=== PATIENT | male | born 1955 | race Caucasian/White ===

== ENCOUNTER 2024-01-02 02:52 | Inpatient (IN) | payer OTHER ==
[~2024-01-02] VITALS: Ht 180.3 cm; Wt 119.0 kg
[2024-01-02 03:56] LABS: BASOPHILS ABSOLUTE AUTO 0.08 K/mm3 (0.00-0.23); BASOPHILS PERCENT AUTO 1 % (0-2); EOSINOPHILS ABSOLUTE AUTO 0.01 K/mm3 (0.00-0.68); EOSINOPHILS PERCENT AUTO 0 % (0-6); Hematocrit 38.9 % (37.0-53.0); Hemoglobin 12.2 g/dL (13.5-17.5); IMMATURE GRAN PERCENT AUTO 1 % (0-1); LYMPHOCYTES ABSOLUTE AUTO 0.87 K/mm3 (0.84-5.20); LYMPHOCYTES PERCENT AUTO 7 % (21-46); MONOCYTES ABSOLUTE AUTO 1.52 K/mm3 (0.16-1.47); MONOCYTES PERCENT AUTO 12 % (4-13); Mean Corpuscular HGB 23.8 pg (26.0-34.0); Mean Corpuscular HGB Conc 31.4 g/dL (31.5-36.5); Mean Corpuscular Volume 76 fL (80-100); Mean Platelet Volume 9.7 fL (9.1-12.4); NEUTROPHILS ABSOLUTE AUTO 10.11 K/mm3 (1.96-9.15); NEUTROPHILS PERCENT AUTO 80 % (41-73); Platelet Count 297 K/mm3 (150-400); RDW Coefficient Variation 16.4 % (11.7-14.2); RDW Standard Deviation 44.1 fL (35.1-46.3); Red Blood Cell Count 5.13 M/mm3 (4.30-5.90); White Blood Cell Count 12.69 K/mm3 (4.00-11.30)
[2024-01-02 04:06] LABS: Albumin/Globulin Ratio 0.7 (0.8-1.8); Bilirubin, Total 1.7 mg/dL (0.1-1.0); Bun/Creatinine Ratio 20.3 (12.0-20.0); Calcium, Blood 8.9 mg/dL (8.5-10.1); Creatinine, Blood 0.84 mg/dL (0.60-1.20); Globulin, Blood 4.1 g/dL (2.2-4.0); Potassium, Blood 3.4 mmol/L (3.5-5.5); Total Protein, Blood 7.1 g/dL (6.4-8.2)
[2024-01-02] MEDS ORDERED: Ipratropium/Albuterol SulF 2.5-0.5MG/3 ML Amp INH ONE (04:55)
[2024-01-02] MEDS ORDERED: NS 1,000 ML IV SCH (05:15)
[2024-01-02] MEDS ORDERED: Ondansetron HCl 2 MG / ML 2ML Vial IV PRN (05:25)
[2024-01-02 05:26] LABS: Influenza B, PCR NEGATIVE (NEGATIVE); Resp Syncytial Virus, PCR NEGATIVE (NEGATIVE)
[2024-01-02] MEDS ORDERED: Ipratropium/Albuterol SulF 2.5-0.5MG/3 ML Amp INH PRN (05:30)
[2024-01-02] MEDS ORDERED: Potassium Chloride 40 MEQ in NS 250 ML IV ONE (05:30)
[2024-01-02 05:59] LABS: Base Excess Venous -1.2 mmol/L; Bicarbonate Venous 22.5 mmol/L (24.0-30.0); PCO2 Venous 46.4 mmHg (38-42); pH Blood Venous 7.33 (7.34-7.37)
[2024-01-02 06:21] LABS: Influenza A, PCR POSITIVE (NEGATIVE); SARS-Cov-2 (COVID-19) PCR, MMC POSITIVE (NEGATIVE)
[2024-01-02] MEDS ORDERED: D5W-1/2NS KCl 10mEq 1,000 ML IV SCH (06:25)
[2024-01-02] MEDS ORDERED: D5W-1/2NS 1,000 ML IV SCH (06:30)
[2024-01-02 06:31] LABS: D-Dimer, Quantitative 0.28 mg/L FEU (0.00-0.52); International Normalized Ratio 1.31; Prothrombin Time Results 13.7 Sec (9.7-11.5)
[2024-01-02] MEDS ORDERED: Dextrose 50% 50 ML Syringe IV ONE (06:35)
[2024-01-02] MEDS ORDERED: Azithromycin 500 MG in NS 250 ML IV ONE (06:50)
[2024-01-02] MEDS ORDERED: CefTRIAXone Sodium 1,000 MG in NS 50 ML IV ONE (06:50)
[2024-01-02] MEDS ORDERED: OMEP20ER PO (07:46)
[2024-01-02] MEDS ORDERED: XARELTO20 MG PO (07:46)
[2024-01-02] MEDS ORDERED: METF500C PO (07:46)
[2024-01-02] MEDS ORDERED: BASAGLAR K100 UNIT/1 SC (07:47)
[2024-01-02] MEDS ORDERED: INSULIN AS100 UNIT/7 SC (07:48)
[2024-01-02] MEDS ORDERED: JARDIANCE25 MG PO (07:49)
[2024-01-02] MEDS ORDERED: EPLERENONE50 MG PO (07:49)
[2024-01-02] MEDS ORDERED: GLUCOSE4 GM PO (07:49)
[2024-01-02] MEDS ORDERED: FURO40 PO (07:49)
[2024-01-02] MEDS ORDERED: CARV25 PO (07:50)
[2024-01-02] MEDS ORDERED: DERMACINRX FOL1 EAC2 PO (07:50)
[2024-01-02] MEDS ORDERED: Remdesivir (EUA) 200 MG in NS 250 ML IV ONE (07:50)
[2024-01-02] MEDS ORDERED: ALOGLIPTIN25 M7 PO (07:51)
[2024-01-02] MEDS ORDERED: CALCIPOTRIENE60 G3 TOP (07:51)
[2024-01-02] MEDS ORDERED: ATOR80 PO (07:51)
[2024-01-02] MEDS ORDERED: ASPI81CH PO (07:53)
[2024-01-02 08:51] LABS: Source, Urine Clean Catch
[2024-01-02] MEDS ORDERED: Oseltamivir Phosphate 75 MG Cap PO SCH (09:00)
[2024-01-02] MEDS ORDERED: dexAMETHasone 4 MG TAB PO SCH (09:00)
[2024-01-02] MEDS ORDERED: Enoxaparin 40 MG/0.4 ML SYR SC SCH (09:00)
[2024-01-02 09:32] LABS: Bilirubin, Urine Neg (Neg); Blood, Urine Neg (Neg); Glucose Qualitative, Urine 4+ (Neg); Ketones, Urine Neg (Neg); Leukocyte Esterase, Urine Neg (Neg); Nitrite, Urine Neg (Neg); Protein, Urine 2+ (Neg); Specific Gravity, Urine 1.025 (1.003-1.022); Urobilinogen, Urine NORM (Normal)
[2024-01-02 09:47] LABS: U Amphetamine Screen Not Detected; U Barbituate Screen Not Detected; U Benzodiazapine Screen Not Detected; U Buprenorphine Screen Not Detected; U Cannabinoids Screen Not Detected; U Cocaine Screen Not Detected; U Methadone Screen Not Detected; U Methamphetamine Screen Not Detected; U Opiates Screen Not Detected; U Oxycodone Screen Not Detected; U Phencyclidine Screen Not Detected
[2024-01-02 09:58] VITALS: BP 143/67
[2024-01-02 10:10] LABS: Appearance, Urine Hazy (Clear); Color, Urine Yellow (P-Yellow)
[2024-01-02 10:12] LABS: Mucus Heavy (0-Heavy)
[2024-01-02 10:13] LABS: Red Blood Cells, Urine 0-2 /hpf (0-2); Squamous Epithelial Cells Many /hpf (Few); White Blood Cells, Urine 0-2 /hpf (0-5)
[2024-01-02 10:14] LABS: Bacteria Mod /hpf
[2024-01-02 10:15] LABS: Amorphous Light (0-Heavy)
[2024-01-02] MEDS ORDERED: Glucose Oral Gel 15 GM TUBE PO PRN (10:25)
--- NOTE | 2024-01-02 11:13 | NUR ---
TRANSFER NOTE REPORT RECIEVED FROM ER NURSE AT 0921. PT ARRIVED TO PCU AT 0950 [facility] AND ON 4L NC. PT TRANSFERED FROM [facility] TO BED VIA SLIDE SHEET AND 4 STAFF MEMBERS. PT A/OX4 AT TIME OF ARRIVAL. WOUNDS ON HIS RIGHT FOOT, LEFT ELBOW AND SCABS ON HIS ABD, PHOTOS IN CHART. PRESENT AT TIME OF ARRIVAL. PT ORIENTED TO ROOM AND CALL LIGHT. PT HR AFIB IN THE 100-110'S. PT BLOOD GUCOSE 65 AT 1120 PT ASYMPTOMATIC, ORANGE JUICE PROVIDED.
[2024-01-02] MEDS ORDERED: Insulin Human Lispro 100 Units/ML 3ML Syringe SC SCH (11:30)
[2024-01-02 15:55] VITALS: BP 139/81
--- NOTE | 2024-01-02 17:22 | NUR ---
SHIFT SUMMARY PT A/OX4 AND COOPERATIVE CARE. PT ABLE TO EXPRESS NEEDS AND CALLS APPROPIATE. PT REMAINED AFIB WITH RATE 100-120'S. NO REPORT OF CHEST ZOYA/PRESSURE SINCE ARRIVING TO UNIT. PT TITRATED FROM 4L NC TO RA, SATS REMAINED IN THE 90'S, TOLERAED WELL. PT HAS NOT REPORTED ANY SOB WHILE BE BEDREST, PT ABLE TO SIT EDGE OF BED ON HIS OWN, TOLERATES WELL. OTHER VSS. PT USING URINAL AT BEDSIDE. PT INDEPENDENT IN BED.
[2024-01-02 20:03] VITALS: BP 130/86
[2024-01-02] MEDS ORDERED: Atorvastatin 40 MG Tab PO SCH (21:00)
[2024-01-02] MEDS ORDERED: Eplerenone 25 MG Tab PO SCH (21:00)
[2024-01-02] MEDS ORDERED: Carvedilol 25 MG Tab PO SCH (21:00)
[2024-01-02] MEDS ORDERED: Insulin Glargine-Yfgn 100 Unit/mL 3 ML SYR SC SCH (21:00)
[2024-01-03 04:00] VITALS: BP 124/70
[2024-01-03 04:05] LABS: BASOPHILS ABSOLUTE AUTO 0.02 K/mm3 (0.00-0.23); BASOPHILS PERCENT AUTO 0 % (0-2); EOSINOPHILS PERCENT AUTO 0 % (0-6); Hematocrit 37.5 % (37.0-53.0); Hemoglobin 11.9 g/dL (13.5-17.5); IMMATURE GRAN ABSOLUTE AUTO 0.13 K/mm3 (0.00-0.10); IMMATURE GRAN PERCENT AUTO 1 % (0-1); LYMPHOCYTES PERCENT AUTO 11 % (21-46); MONOCYTES ABSOLUTE AUTO 1.46 K/mm3 (0.16-1.47); MONOCYTES PERCENT AUTO 11 % (4-13); Mean Corpuscular HGB 23.7 pg (26.0-34.0); Mean Corpuscular HGB Conc 31.7 g/dL (31.5-36.5); Mean Corpuscular Volume 75 fL (80-100); Mean Platelet Volume 9.7 fL (9.1-12.4); NEUTROPHILS ABSOLUTE AUTO 10.51 K/mm3 (1.96-9.15); NEUTROPHILS PERCENT AUTO 77 % (41-73); Platelet Count 314 K/mm3 (150-400); RDW Coefficient Variation 17.2 % (11.7-14.2); RDW Standard Deviation 44.5 fL (35.1-46.3); Red Blood Cell Count 5.03 M/mm3 (4.30-5.90); White Blood Cell Count 13.62 K/mm3 (4.00-11.30)
[2024-01-03 04:33] LABS: Albumin, Blood 2.8 g/dL (3.4-5.0); Albumin/Globulin Ratio 0.7 (0.8-1.8); Bilirubin, Total 1.9 mg/dL (0.1-1.0); Bun/Creatinine Ratio 25.5 (12.0-20.0); Calcium, Blood 8.8 mg/dL (8.5-10.1); Creatinine, Blood 0.78 mg/dL (0.60-1.20); Globulin, Blood 4.1 g/dL (2.2-4.0); Potassium, Blood 4.4 mmol/L (3.5-5.5); Total Protein, Blood 6.9 g/dL (6.4-8.2)
--- NOTE | 2024-01-03 05:56 | NUR ---
SHIFT SUMMARY ASSUMED CARE OF PATIENT AT 1900. HE HAS BEEN ALERT & ORIENTED x4 THROUGHOUT THE SHIFT, COOPERATIVE WITH CARES, ABLE TO APPROPRIATELY EXPRESS HIS NEEDS. AFIB ON TELE WITH RATE 90'S - 120'S. OCCASIONAL DRY COUGH WITH EXPIRATORY WHEEZES NOTED. PATIENT STATES HE FEELS LIKE HE HAS "GUNK" IN HIS LUNGS BUT HE'S UNABLE TO COUGH IT UP. PATIENT TOLERATED 2L OF O2 VIA NC OVERNIGHT, DESATS WITH PERIODS OF APNEA DURING SLEEP. Q4 BLOOD GLUCOSE CHECKS HAVE BEEN STABLE OVERNIGHT, LAST GLUCOSE WAS 176. PATIENT REPORTS NOT BEING ABLE TO SLEEP MUCH OVERNIGHT, HOWEVER, DURING HOURLY ROUNDING PATIENT APPEARED TO BE RESTING THROUGHOUT THE NIGHT. MULTIPLE WOUNDS NOTED AND DOCUMENTED. SEE PICTURES ON PATIENT'S CHART.
[2024-01-03] MEDS ORDERED: Alogliptin Benzoate 25 MG TAB PO SCH (09:00)
[2024-01-03] MEDS ORDERED: Aspirin 81 MG Chew PO SCH (09:00)
[2024-01-03] MEDS ORDERED: Rivaroxaban 10 MG Tab PO SCH (09:00)
[2024-01-03] MEDS ORDERED: Furosemide 10 MG / ML 2ML Vial IV SCH (09:00)
[2024-01-03] MEDS ORDERED: Empagliflozin 25 MG TAB PO SCH (09:00)
[2024-01-03 09:29] VITALS: BP 113/62
[2024-01-03] MEDS ORDERED: Remdesivir (EUA) 100 MG in NS 250 ML IV SCH (12:00)
[2024-01-03] MEDS ORDERED: OSEL75CA PO (13:06)
[2024-01-03] MEDS ORDERED: DECADRON6 M1 PO (13:06)
--- NOTE | 2024-01-03 13:53 | NUR ---
DISCHARGE NOTE PT WAS ALERT AND ORIENTED X 4. VSS, SPO2 MAINTAINED >95% VIA RA WHEN AWAKE, 2L NC APPLIED WHEN SLEEPING TO MAINTAIN SPO2 >95%. HE DENIED FEELINGS OF CHEST PAIN/PRESSURE WELL SOB. HE DENIED FEELING LIGHTHEADED/DIZZY, HE DENIED FEELINGS OF NAUSEA/VOMITTING. OCCASIONAL PRODUCTIVE COUGH NOTED. HE WAS AFEBRILE. THIS RN REMOVED ALL PERIPHERAL IV'S. THIS RN EDUCATED PT AND HIS REGARDING DISCHARGE INSTRUCTIONS INCLUDING FOLLOW UP APPOINTMENTS AND MEDICATION REGIMEN. PT LEFT PCU AT APPROX/ 1340 VIA WHEELCHAIR AND WAS ESCORTED OUTSIDE BY THIS RN.
== END 2024-01-03 13:36 | disposition home or self-care (01) | DRG 177 ==
LOC: ER 02:52 → PCU 05:24 → ERHOLD 05:24 → PCU 09:50
PROVIDERS: Emergency Medicine; ADMIT Internal Medicine
PROC: XW033E5 Introduction of Remdesivir Anti-infective into Peripheral Vein, Percutaneous Approach, New Technology Group 5 (ICD-10-PCS; principal; 2024-01-02)
PROC: 3E0DX3Z Introduction of Anti-inflammatory into Mouth and Pharynx, External Approach (ICD-10-PCS; 2024-01-02)
DX: U07.1 COVID-19 (principal); J10.00 Influenza due to other identified influenza virus with unspecified type of pneumonia; J12.82 Pneumonia due to coronavirus disease 2019; J96.02 Acute respiratory failure with hypercapnia; J96.01 Acute respiratory failure with hypoxia; I48.20 Chronic atrial fibrillation, unspecified; I50.32 Chronic diastolic (congestive) heart failure; E11.649 Type 2 diabetes mellitus with hypoglycemia without coma; E87.6 Hypokalemia; L40.9 Psoriasis, unspecified; Z87.440 Personal history of urinary (tract) infections; Z88.5 Allergy status to narcotic agent; Z88.0 Allergy status to penicillin; Z99.81 Dependence on supplemental oxygen; E86.0 Dehydration
CPT/HCPCS: 0241U; 36415; 71046; 80053; 81001; 82140; 82803; 82947; 83735; 83880; 84145; 84484; 85025; 85379; 85610; 87086; 93005; 93010; 94640; 94664; 94760; 94762; 99285-25; A9270; C8929; J0248; J0456; J0696; J1815; J3480; J7030; J7050; Q9957